=== PATIENT | male | born 1970 | race Caucasian/White ===

== ENCOUNTER 2020-02-04 13:58 | Emergency (ER) | payer BC, SELFPAY ==
[~2020-02-04] VITALS: Ht 177.8 cm; Wt 88.5 kg
[2020-02-04 14:40] VITALS: BP_SYST 130
[2020-02-04 16:37] VITALS: BP_SYST 131
== END 2020-02-04 16:15 | disposition home or self-care (01) ==
LOC: SED 13:58
DX: U07.1 COVID-19 (principal); R07.89 Other chest pain
CPT/HCPCS: 36600; 71045; 82803-TC; 99284

== ENCOUNTER 2020-02-17 12:07 | Emergency (ER) | payer BC, SELFPAY ==
[~2020-02-17] VITALS: Ht 177.8 cm; Wt 90.7 kg
[2020-02-17 12:31] VITALS: BP_SYST 151
--- NOTE | 2020-02-17 12:31 | NUR ---
Patient to ER surge tent for evaluation. Side rails up.
--- NOTE | 2020-02-17 12:32 | NUR ---
Patient came from home for evaluation. Patient reports a positive COVID-19 diagnosis 3 weeks ago. He is complaining of fever of 100, SOB, painful rash from back of head down back starting 2 days ago.
--- NOTE | 2020-02-17 12:55 | NUR ---
ER Dr. Austin in tent examining patient.
[2020-02-17 14:15] VITALS: BP_SYST 151
--- NOTE | 2020-02-17 14:15 | NUR ---
Patient given written and verbal discharge instructions and verbalizes understanding. ER MD discussed with patient the results and treatment provided. Patient in stable condition. ID arm band removed. Rx of keflex given. Patient educated on pain management and to follow up with PMD. Pain Scale 0/10. Opportunity for questions provided and answered. Medication side effect fact sheet provided.
== END 2020-02-17 14:15 | disposition home or self-care (01) ==
LOC: SED 12:07
DX: B34.9 Viral infection, unspecified (principal); Z20.828 Contact with and (suspected) exposure to other viral communicable diseases
CPT/HCPCS: 71045; 99284; C9803; U0003

== ENCOUNTER 2022-12-26 14:43 | Emergency (ER) | payer BC ==
[~2022-12-26] VITALS: Ht 177.8 cm; Wt 88.5 kg
[2022-12-26 14:43] VITALS: BP_SYST 141
--- NOTE | 2022-12-26 14:43 | NUR ---
BROUGHT IN TO BED #2 AND TRIAGED. WILL ASSUME CARE. PT STATES MID CHEST PAIN FOR LAST 2 DAYS, STATES SLIGHT SOB, STATES INCREASED PAIN WITH DEEP BREATHING. NON-RADIATING.
--- NOTE | 2022-12-26 14:55 | NUR ---
PT BIB SELF FROM HOME C/O CHEST PAIN NON RADIATING X 2 DAYS. PT STATES PAIN GETS WORSE WHEN BENDING OVER OR TAKING A DEEP BREATH. PT STATES NAUSEA X 2 DAYS. PT STATES HX OF BOARDERLINE HTN AND SEVERE HEARTBURN 2 WEEKS AGO. PT IS RESTING IN BED COMFORTABLY WITH RAILS UP VSS
[2022-12-26 15:38] LABS: BASOPHILS # (AUTO) 0.1 K/uL (0.0-0.2); BASOPHILS % (AUTO) 0.7 % (0.0-2.0); EOSINOPHILS # (AUTO) 0.1 K/uL (0.0-0.4); EOSINOPHILS % (AUTO) 1.3 % (0.0-4.0); HEMATOCRIT 48.7 % (36-54); HEMOGLOBIN 16.8 g/dL (14.0-18.0); LYMPHOCYTES # (AUTO) 2.4 K/uL (1.0-5.5); LYMPHOCYTES % (AUTO) 31.5 % (20.5-51.5); MEAN CORPUSCULAR HEMOGLOBIN 33 pg (27-31); MEAN CORPUSCULAR HGB CONC 34 % (32-36); MEAN CORPUSCULAR VOLUME 94 fL (79.0-98.0); MONOCYTES # (AUTO) 0.6 K/uL (0.0-1.0); NEUTROPHILS # (AUTO) 4.5 K/uL (1.8-7.7); NEUTROPHILS % (AUTO) 58.5 % (40.0-70.0); PLATELET COUNT (AUTO) 274 K/uL (130-430); RED BLOOD CELL COUNT(AUTO) 5.16 MIL/uL (4.2-6.2); RED CELL DISTRIBUTION WIDTH 13.9 % (9.0-15.0); WHITE BLOOD COUNT (AUTO) 7.7 K/uL (4.8-10.8)
[2022-12-26 15:48] LABS: ANION GAP 4 (5-15); CALCIUM 9.2 mg/dL (8.4-11.0); CHLORIDE 101 mmol/L (98-107); CREATININE 1.15 mg/dL (0.55-1.30); GFR AFRICAN AMERICAN 87 mL/min (>90); GLUCOSE 93 mg/dL (70-99); UREA NITROGEN, BLOOD 32 mg/dL (8-21)
--- NOTE | 2022-12-26 15:50 | NUR ---
ER at bedside examining patient.
[2022-12-26 15:54] LABS: INR 1.1 (0.80-1.20); PROTHROMBIN TIME 10.9 SECS (9.5-12.5)
[2022-12-26 15:56] LABS: ALANINE AMINOTRANSFERASE 33 U/L (12-78); ALBUMIN 3.7 g/dL (3.4-4.8); ASPARTATE AMINOTRANSFERASE 27 U/L (10-37); TOTAL BILIRUBIN 0.4 mg/dL (0.0-1.0)
--- NOTE | 2022-12-26 16:15 | NUR ---
PT PROVIDED URINE FOR LAB RESTING COMFORTABLY IN BED VSS RAILS UP
[2022-12-26 16:40] LABS: BARBITURATE, URINE NEGATIVE (NEG <=200); BENZODIAZEPINE, URINE NEGATIVE (NEG <=150); COCAINE, URINE NEGATIVE (NEG <=150); METHAMPHETAMINES SCREEN,URINE NEGATIVE (NEG <=500); URINE AMPHETAMINE NEGATIVE (NEG <=500); URINE METHADONE NEGATIVE (NEG <=200)
[2022-12-26 16:41] LABS: CANNABINOID, URINE NEGATIVE (NEG <=50); OPIATE, URINE NEGATIVE (NEG <=100); PHENCYCLIDINE SCREEN,URINE NEGATIVE (NEG <=25); URINE OXYCODONE SCREEN NEGATIVE (NEG <=100); URINE PROPOXYPHENE SCREEN NEGATIVE (NEG <=300)
[2022-12-26 16:42] LABS: UR TRICYCLIC ANTIDEPRESSANTS NEGATIVE (NEG <=300)
--- NOTE | 2022-12-26 17:35 | NUR ---
DR WALTERS SPEAKING WITH PT AT THIS TIME
[2022-12-26] MEDS ORDERED: TELM40TA2 PO (17:45)
[2022-12-26 17:50] VITALS: BP_SYST 149
--- NOTE | 2022-12-26 17:51 | NUR ---
Patient given written and verbal discharge instructions and verbalizes understanding. ER MD discussed with patient the results and treatment provided. Patient in stable condition. ID arm band removed. Rx of MICARDIS given. Patient educated on pain management and to follow up with PMD. Pain Scale 0/10. Opportunity for questions provided and answered. Medication side effect fact sheet provided.
== END 2022-12-26 17:50 | disposition home or self-care (01) ==
LOC: SED 14:43
DX: I10 Essential (primary) hypertension (principal); R07.2 Precordial pain; R53.83 Other fatigue; Z79.899 Other long term (current) drug therapy
CPT/HCPCS: 36415; 71045; 80053; 80307; 83880; 84484; 85025; 85379; 85610-TC; 85730-TC; 93005; 99285

== ENCOUNTER 2024-05-01 20:10 | Emergency (ER) | payer BC ==
[~2024-05-01] VITALS: Ht 177.8 cm; Wt 90.7 kg
[~2024-05-01 20:10] MED LIST: TELM40TA2 PO
[2024-05-01 20:33] VITALS: BP_SYST 144; PULSE 85; RESP 16; TEMP 98.3; O2SAT 98
[2024-05-01] MEDS ORDERED: FLOEARD LEFT EAR (22:23)
[2024-05-01] MEDS ORDERED: TRAM50TA2 PO (22:26)
[2024-05-01] MEDS: HYDROcodone/ACETAMIN 10-325 MG TAB PO ONE (22:31)
[2024-05-01 22:35] VITALS: BP_SYST 130; PULSE 85; RESP 16; TEMP 98.9; O2SAT 94
== END 2024-05-01 22:35 | disposition home or self-care (01) ==
LOC: SED 20:10
DX: H72.92 Unspecified perforation of tympanic membrane, left ear (principal); I10 Essential (primary) hypertension; Z88.2 Allergy status to sulfonamides; Z79.899 Other long term (current) drug therapy
CPT/HCPCS: 99283

== ENCOUNTER 2024-05-25 05:44 | Emergency (ER) | payer BC ==
[~2024-05-25] VITALS: Ht 177.8 cm; Wt 90.7 kg
[~2024-05-25 05:44] MED LIST changes: +FLOEARD LEFT EAR; +TRAM50TA2 PO
[2024-05-25 05:49] VITALS: BP_SYST 140; PULSE 101; RESP 20; TEMP 98; O2SAT 100
[2024-05-25] MEDS: LIDOCAINE 1% 10 MG/ML, 20 ML MDV INJ ONE (06:36)
[2024-05-25] MEDS: BACITRACIN 1 GM OINT TP ONE (06:37)
[2024-05-25] MEDS ORDERED: PROPOFOL DRIP 100 ML IV ONE (07:00)
[2024-05-25] MEDS ORDERED: fentaNYL CITRATE/PF 100 MCG/2 ML AMP IVP ONE (07:00)
[2024-05-25] MEDS: DIPHTH,PERTUSS(ACELL),TET VAC 0.5 ML VIAL (Tdap) I.M. ONE (07:02)
[2024-05-25 07:10] VITALS: BP_SYST 140; PULSE 101; RESP 20; TEMP 98; O2SAT 100
== END 2024-05-25 07:10 | disposition home or self-care (01) ==
LOC: SED 05:44
DX: S01.311A Laceration without foreign body of right ear, initial encounter (principal); I10 Essential (primary) hypertension; Z23 Encounter for immunization; Z98.890 Other specified postprocedural states; Z88.2 Allergy status to sulfonamides; W22.8XXA Striking against or struck by other objects, initial encounter; Y93.89 Activity, other specified; Y92.89 Other specified places as the place of occurrence of the external cause; Y99.8 Other external cause status
CPT/HCPCS: 99283; 90715; 90471; 12013; J2003